=== PATIENT | male | born 1970 | race Caucasian/White ===

== ENCOUNTER 2023-05-04 09:35 | Outpatient (AMBR) | payer MEDICAID, SELFPAY | END 2023-05-08 23:59 | disposition home or self-care (01) | PROVIDERS: Visit Provider Student in an Organized Health Care Education/Training Program | DX: I10 Essential (primary) hypertension (principal) ==

== ENCOUNTER 2024-09-29 08:27 | Outpatient (AMB) | payer MEDICAID, SELFPAY ==
[2024-09-29 08:32] VITALS: BP 122/86; PULSE 85; RESP 19; TEMP 36.4; O2SAT 97; BMI 36.6
--- NOTE | 2024-09-29 08:32 | ORTHONT_ITS ---
Vital signs 09/29/24 08:32 Height 1.75 m Height Method Stated Weight 112.094 kg Weight Measurement Method Standing Scale BMI 36.6 BP 122/86 H Blood Pressure Source Automatic Cuff Blood Pressure Location Right Upper Arm Position Sitting Respiration 19 Pulse 85 Pulse Source Monitor Temp 97.5 F Temp Source Temporal Artery Scan Pulse Oximetry (%) 97 Oxygen Delivery Method Room Air Med/Allergies Allergies & Medications Allergies No Known Allergies Allergy (Verified 09/29/24 08:33) Medication Reconciliation cyclobenzaprine 10 mg tablet 10 mg PO TID PRN Muscle Spasm 07/07/21 [History Con firmed 09/29/24] lisinopril 40 mg tablet 40 mg PO QDAY 07/07/21 [History Confirmed 09/29/24] diclofenac sodium 75 mg tablet,delayed release 75 mg PO BID PRN pain #0 tabs 07/17/21 [Rx Confirmed 09/29/24] meloxicam 7.5 mg tablet 7.5 mg PO QDAY #45 tabs 04/15/24 [Rx Confirmed 09/29/24] meloxicam 7.5 mg tablet 7.5 mg PO QDAY #45 tabs 09/29/24 [Rx] Subjective Visit Visit for: follow up visit and knee (LEFT) Immunization / Flu Flu Vaccine in the Last 12 Months: No Flu Vaccine Exclusion Criteria: Refused by Patient History of Present Illness Chief complaint: LEFT KNEE PAIN Patient is a pleasant 53-year-old male with bilateral knee pain. It is of approximately equal severity. The pain has been going on for several years. He has been trying anti-inflammatories including diclofenac oral and extensive physical therapy. He has not had any injections. T He reports that the knee is not bad enough for an injection. He is doing well. He reports his left hip has been bothering him significantly recently. The pain is in his groin.He had a hip injection and did not get good relief, Personal History Occupation: [employer] PMH: smoker (NON SMOKER ) Pain Pain level (0-10): 8 Pain duration: CONSTANT Pain location: inside (medial) Pain quality: sharp and tingling Pain timing: night and increases with activity Associated signs & symptoms: none Ambulatory data Ambulatory device: none Treatments Improvement with previous injections: No Improvement with PT: No Improvement with NSAIDS: no Review of Systems Review of Systems: All systems negative unless otherwise noted in HPI. Exam Exam Patient is in no acute distress and is cooperative with the examination today. Breathing is nonlabored. In no respiratory distress. Bilateral extremities were evaluated and demonstrates sensation intact to light touch. Palpable pedal pulses are present. No significant edema is present. Bilateral hips were examined. The patient has pain limited internal rotation of his left hip. He can only rotate to neutral. He has a positive Stinchfield on the left. The left knee was examined. The left knee is in varus alignment. Range of motion from 0-115 degrees. Knee is stable to varus and valgus as well as AP translation with <5mm. Patient has a negative McMurrays. There is no pain with patellofemoral compression and no crepitus noted. The knee is tender to palpation medially. The right knee was also examined. The right knee is in varus alignment. Range of motion from 0-120 degrees. Knee is stable to varus and valgus as well as AP translation with <5mm. Patient has a negative McMurrays. There is no pain with patellofemoral compression and no crepitus noted. The knee is tender to palpation medially. X-rays demonstrate mild arthritis on exam. Joint spaces are well-preserved Assessment and Plan Problem List (1) Arthritis of left hip: Status: Acute Plan: Patient is a 53-year-old male with left hip arthritis and bilateral knee arthritis. He has minimal arthritis We will continue with nonoperative treatment. We offered him a knee injection and he did not want one. He will call us if the pain is bad enough for an injection. We will start with NSAIDS (2) Bilateral primary osteoarthritis of knee: Status: Acute Office Procedures GNS Level of Care Nursing/Assessment Patient Status: Established Patient Nursing Assessment/Reassesment: Medication Reconciliation, Update PMH in EMR and Vital Signs Coordination of Care: Complex Care and Chronic Disease 1-5, Education Complex Pt/Fam, Consent,records obtained, informed consent, 1 Ins Authorization, Results/Orders obtained and Staff clarify orders Established Patient Charge Established Patient Point Assignment: 110 Established Patient Point Charge: EP Level 3 (80-115) Past Medical History Past Medical History Have you ever been diagnosed with any of the following: Cardiology Problems Congestive Heart Failure: No Respiratory Problems Chronic Obstructive Pulmonary Disease (COPD): No Smoking: No Smoking Exposure: No Genital/Urinary Problems Renal Disease: No Endocrine Problems Diabetes Mellitus Type 1: No Diabetes Mellitus Type 2: No
== END 2024-09-29 08:56 | disposition home or self-care (01) ==
LOC: HODSRG 08:27
PROVIDERS: PCP Family Medicine; Referring Provider Family Medicine; Supervising Provider Orthopaedic Surgery Adult Reconstructive Orthopaedic Surgery; Visit Provider Orthopaedic Surgery Adult Reconstructive Orthopaedic Surgery
DX: M16.12 Unilateral primary osteoarthritis, left hip (principal); M17.0 Bilateral primary osteoarthritis of knee
CPT/HCPCS: 99213; G0463

== ENCOUNTER 2025-07-13 08:01 | Outpatient (RCR) | payer MEDICAID, SELFPAY | END 2025-08-08 23:59 | disposition home or self-care (01) | LOC: SCTC 08:01 | PROVIDERS: PCP Physician Assistant; Referring Provider Physician Assistant; Visit Provider Nurse Practitioner Family | DX: R71.8 Other abnormality of red blood cells (principal); E66.9 Obesity, unspecified; Z68.39 Body mass index [BMI] 39.0-39.9, adult; R05.3 Chronic cough; I10 Essential (primary) hypertension; R51.9 Headache, unspecified; R10.9 Unspecified abdominal pain | CPT/HCPCS: 99213; G0463 ==

== ENCOUNTER 2025-08-07 13:24 | Outpatient (AMB) | payer MEDICAID, SELFPAY ==
--- NOTE | 2025-08-07 14:11 | PD.GSCLVISIT ---
[facility] Signs - [facility] 08/07/25 14:12 Height 1.75 m Height Method Stated Weight 122.13 kg Weight Measurement Method Standing Scale BMI 39.9 BP 174/130 H Blood Pressure Source Automatic Cuff Blood Pressure Location Left Upper Arm Position Sitting Respiration 18 Pulse 106 H Pulse Source Monitor Temp 98.4 F Temp Source Temporal Artery Scan Pulse Oximetry (%) 91 L Oxygen Delivery Method Room Air Med/Allergies Allergies & Medications Allergies No Known Allergies Allergy (Verified 08/07/25 14:13) Medication Reconciliation cyclobenzaprine 10 mg tablet 10 mg PO TID PRN Muscle Spasm 07/07/21 [History Confirmed 08/07/25] lisinopril 40 mg tablet 40 mg PO QDAY 07/07/21 [History Confirmed 08/07/25] diclofenac sodium 75 mg tablet,delayed release 75 mg PO BID PRN pain #0 tabs 07/17/21 [Rx Confirmed 08/07/25] meloxicam 7.5 mg tablet 7.5 mg PO QDAY #45 tabs 04/15/24 [Rx Confirmed 08/07/25] meloxicam 7.5 mg tablet 7.5 mg PO QDAY #45 tabs 09/29/24 [Rx Confirmed 08/07/25] MA Intake Visit Data Collection New Patient or Established: Established Patient (seen at [facility] within 3 years) Seen by Clinical Staff ONLY (RN/MA): No Reason for Visit:: COLONOSCOPY FOLLOW UP Pain Present Currently: No PCP or OBGYN visit in last 3 months: Yes Hx Now: No Do You Feel Safe at Home: Yes Authorities Contacted: N/A Smoking Status Smoking Status: Never smoker Immunization / Flu Flu Vaccine in the Last 12 Months: No Flu Vaccine Exclusion Criteria: No Exclusion Criteria Past Medical History Past Medical History CARDIAC: Negative Congestive Heart Failure RESPIRATORY: Negative Chronic Obstructive Pulmonary Disease (COPD), Smoking or Smoking Exposure GENITOURINARY: Negative Renal Disease ENDOCRINE: Negative Diabetes Mellitus Type 1 or Diabetes Mellitus Type 2 Social History SMOKING STATUS: Smoking status: Never smoker ALCOHOL FREQUENCY: Alcohol Intake Frequency: A Few Times a Week HOUSING: Housing: Homeless LIVES WITH: Lives With: Alone Office Procedures GNS Level of Care Nursing/Assessment Patient Status: Established Patient Nursing Assessment/Reassesment: Medication Reconciliation, Update PMH in EMR and Vital Signs Coordination of Care: Complex Care and Chronic Disease 1-5, Consent,records obtained, informed consent, Education Simp Pt/Fam, Results/Orders obtained and Staff clarify orders Established Patient Charge Established Patient Point Assignment: 90 Established Patient Point Charge: EP Level 3 (80-115) Patient Portal Questionaires Social History Living Situation History Housing: Homeless Housing Other:: Patient is homeless. Tobacco History Smoking Status: Never smoker Alcohol History Alcohol Intake Frequency: A Few Times a Week Domestic Abuse History Do You Feel Safe at Home: Yes Review of Systems Report any current symptoms Only answer those that you have currently: Past Medical History Past Medical History Have you ever been diagnosed with any of the following: Cardiology Problems Congestive Heart Failure: No Respiratory Problems Chronic Obstructive Pulmonary Disease (COPD): No Smoking: No Smoking Exposure: No Genital/Urinary Problems Renal Disease: No Endocrine Problems Diabetes Mellitus Type 1: No Diabetes Mellitus Type 2: No
[2025-08-07 14:12] VITALS: BP 174/130; PULSE 106; RESP 18; TEMP 36.9; O2SAT 91; BMI 39.9
--- NOTE | 2025-08-07 14:40 | PD.GSCLVISIT ---
Vital Signs - [facility] 08/07/25 14:12 08/07/25 14:41 Height 1.75 m Height Method Stated Weight 122.13 kg Weight Measurement Method Standing Scale BMI 39.9 BP 174/130 H 174/130 H Blood Pressure Source Automatic Cuff Blood Pressure Location Left Upper Arm Position Sitting Respiration 18 18 Pulse 106 H 106 H Pulse Source Monitor Temp 98.4 F 98.4 F Temp Source Temporal Artery Scan Pulse Oximetry (%) 91 L 91 L Oxygen Delivery Method Room Air Med/Allergies Allergies & Medications Allergies No Known Allergies Allergy (Verified 08/07/25 14:40) Medication Reconciliation cyclobenzaprine 10 mg tablet 10 mg PO TID PRN Muscle Spasm 07/07/21 [History Confirmed 08/07/25] lisinopril 40 mg tablet 40 mg PO QDAY 07/07/21 [History Confirmed 08/07/25] diclofenac sodium 75 mg tablet,delayed release 75 mg PO BID PRN pain #0 tabs 07/17/21 [Rx Confirmed 08/07/25] meloxicam 7.5 mg tablet 7.5 mg PO QDAY #45 tabs 04/15/24 [Rx Confirmed 08/07/25] meloxicam 7.5 mg tablet 7.5 mg PO QDAY #45 tabs 09/29/24 [Rx Confirmed 08/07/25] MA Intake Visit Data Collection New Patient or Established: Established Patient (seen at [facility] within 3 years) Seen by Clinical Staff ONLY (RN/MA): No Reason for Visit:: REFERRAL COLONOSCOPY Pain Present Currently: No Pain Scale Used: Martins-Will/Numerical Debubblizer Required: No PCP or OBGYN visit in last 3 months: Yes Hx Now: No Do You Feel Safe at Home: Yes Authorities Contacted: N/A Smoking Status Smoking Status: Never smoker Immunization / Flu Flu Vaccine in the Last 12 Months: No Flu Vaccine Exclusion Criteria: Refused by Patient Past Medical History Past Medical History CARDIAC: Negative Congestive Heart Failure RESPIRATORY: Negative Chronic Obstructive Pulmonary Disease (COPD), Smoking or Smoking Exposure GENITOURINARY: Negative Renal Disease ENDOCRINE: Negative Diabetes Mellitus Type 1 or Diabetes Mellitus Type 2 Social History SMOKING STATUS: Smoking status: Never smoker ALCOHOL FREQUENCY: Alcohol Intake Frequency: A Few Times a Week HOUSING: Housing: Homeless LIVES WITH: Lives With: Alone HPI HPI Narrative HISTORY OF PRESENT ILLNESS I, Ria Kwock, have obtained verbal consent from the patient, to be recorded during this encounter which may include, but not limited to, medical history, examination, treatment plans, and relevant health information.? Patient was informed that recording will be read and reviewed by myself before inclusion in the medical chart. 55M referred for screening colonoscopy. This will be his first colonoscopy, referred by his primary care physician for screening. He reports no changes in bowel movements or presence of blood in his stool. There are no concerns about his appetite or weight. He has no history of heart, lung, liver, or kidney issues. He is currently taking ibuprofen and using a topical cream for his knees. Additionally, he takes a small white pill to alleviate itching (?hydroxyzine). He does not take aspirin and has no known drug allergies. He smokes no cigarettes and drinks alcohol very little. There is no family history of cancer. PMH: HTN, knee pain PSHx: None Meds: No antiplt or anticoagulation Allergies: NKDA Social hx: Occasional alcohol use Family hx: No known CRC ROS Review of Systems Systems Reviewed: All systems reviewed, normal except as documented Objective/Exam General General Appearance: alert, cooperative and well groomed Resp Respiratory exam: Absent respiratory distress Assessment & Plan Diagnosis / Problem List (1) Encounter for screening colonoscopy: Status: Acute Assessment & Plan: A colonoscopy will be scheduled for Oct. The procedure will be performed under conscious sedation. A comprehensive discussion was held regarding the procedure, including its benefits, risks, and potential complications. The primary benefit is the ability to detect and remove polyps, which can prevent the development of cancer. Risks include post-procedure bleeding and the rare chance of perforating the colon, which may require emergency surgery and possibly a temporary colostomy bag. The procedure typically takes about 30 minutes, but the patient should expect to be at the facility for a few hours, including recovery time. Post-procedure discomfort and bloating are common, and passing gas due to the air introduced into the colon is necessary. A follow-up appointment will be scheduled a few weeks after the procedure to discuss findings and future screening plans. A packet of information detailing the necessary preparations was provided. The patient was advised to avoid certain foods in the days leading up to the procedure and to abstain from solid food the day before. Clear liquids are permitted until midnight, with the exception of red-colored liquids. A prescription for a medication to be taken the day before the procedure will be sent to the pharmacy. All questions were answered and pt is agreeable to proceeding Office Procedures GNS Level of Care Nursing/Assessment Patient Status: Established Patient Nursing Assessment/Reassesment: Medication Reconciliation, Update PMH in EMR and Vital Signs Coordination of Care: Complex Care and Chronic Disease 1-5, Consent,records obtained, informed consent, Education Simp Pt/Fam, Results/Orders obtained and Staff clarify orders Established Patient Charge Established Patient Point Assignment: 90 Established Patient Point Charge: EP Level 3 (80-115) Patient Portal Questionaires Social History Living Situation History Housing: Homeless Housing Other:: Patient is homeless. Tobacco History Smoking Status: Never smoker Alcohol History Alcohol Intake Frequency: A Few Times a Week Domestic Abuse History Do You Feel Safe at Home: Yes Review of Systems Report any current symptoms Only answer those that you have currently: Past Medical History Past Medical History Have you ever been diagnosed with any of the following: Cardiology Problems Congestive Heart Failure: No Respiratory Problems Chronic Obstructive Pulmonary Disease (COPD): No Smoking: No Smoking Exposure: No Genital/Urinary Problems Renal Disease: No Endocrine Problems Diabetes Mellitus Type 1: No Diabetes Mellitus Type 2: No
[2025-08-07 14:41] VITALS: BP 174/130; PULSE 106; RESP 18; TEMP 36.9; O2SAT 91
== END 2025-08-07 14:41 | disposition home or self-care (01) ==
LOC: HODSRG 13:24
PROVIDERS: PCP Physician Assistant; Referring Provider Physician Assistant; Supervising Provider Surgery; Visit Provider Surgery
DX: Z12.11 Encounter for screening for malignant neoplasm of colon (principal); I10 Essential (primary) hypertension
CPT/HCPCS: 99213; G0463

== ENCOUNTER → 2025-08-10 | Outpatient (CLI) | payer MEDICAID, SELFPAY ==
--- NOTE | 2025-08-10 11:00 | XR_ITS ---
Examination: CT chest with intravenous contrast CT abdomen with intravenous contrast CT pelvis with intravenous contrast CT chest without intravenous contrast CT abdomen without intravenous contrast CT pelvis without intravenous contrast 2-D coronal sagittal reconstructions Date and time: August 10, 2025, 1319 hours, comparison July 07, 2021 INDICATIONS: Abnormal blood tests, red blood cells, abnormality right blood cells CTDI: vol (mGy) : 47.8 DLP: (mGycm): 2426 Technique: Multiple axial images of the chest, abdomen and pelvis with intravenous contrast, 3.0 mm slice thickness. Images obtained post intravenous injection Isovue 370 60 cc. 2-D sagittal and coronal reconstructions. Low dose protocols were performed. One or more of the following dose reduction techniques were used; automated exposure control, adjustment of the mA and/or KV according to patient size, use of iterative reconstruction technique. Findings: No thoracic aortic aneurysm dilatation No pulmonary artery filling defects No paratracheal tracheobronchial or bronchopulmonary adenopathy. Atelectasis in the right lower lung zone Mild pleural disease along both hemithoraces No lobar pneumonia or pulmonary edema 10 mm low-density liver lesion No gallstones No pancreatic mass No abdominal or pelvic lymphadenopathy No renal or ureteral calculi, no hydronephrosis Normal appendix 12 mm fat-containing umbilical hernia Urinary bladder intact No prostatomegaly IMPRESSION: No mediastinal lymphadenopathy Minor atelectasis right lower lobe Recommend hepatic sonography to further assess 10 mm low-density right lobe liver lesion
== END | disposition home or self-care (01) ==
PROVIDERS: Referring Provider Nurse Practitioner Family; Visit Provider Nurse Practitioner Family
DX: J98.11 Atelectasis (principal); K76.9 Liver disease, unspecified
CPT/HCPCS: 71270; 74178; A4649; Q9967

== ENCOUNTER 2025-08-16 09:23 | Outpatient (RCR) | payer MEDICAID, SELFPAY | END 2025-09-08 23:59 | disposition home or self-care (01) | LOC: SCTC 09:23 | PROVIDERS: PCP Family Medicine; Referring Provider Nurse Practitioner Family; Visit Provider Nurse Practitioner Family | DX: K76.89 Other specified diseases of liver (principal); K46.9 Unspecified abdominal hernia without obstruction or gangrene; Z86.19 Personal history of other infectious and parasitic diseases | CPT/HCPCS: 99212; G0463 ==